=== PATIENT | male | born 1935 | race Caucasian/White ===

== ENCOUNTER 2019-01-13 08:04 | Day surgery (SDC) | payer MEDICARE, OTHER ==
[~2019-01-13] VITALS: Ht 175.3 cm; Wt 69.0 kg
[~2019-01-13 08:04] MED LIST: CLOP75TA35 PO; FURO40TA4 PO; LEVO50TA PO; PRAV40TA3 PO; SPIR50TA5 PO
[2019-01-13 08:15] VITALS: BP 129/70
[2019-01-13] MEDS ORDERED: FISH12002 PO (08:27)
[2019-01-13] MEDS ORDERED: MULT-955 PO (08:27)
[2019-01-13] MEDS ORDERED: CHOL400T14 PO (08:27)
[2019-01-13] MEDS ORDERED: SAW450CA7 PO (08:27)
[2019-01-13] MEDS ORDERED: APIX5TAB3 PO (08:35)
[2019-01-13 09:10] VITALS: BP 129/70
[2019-01-13 09:12] VITALS: BP 127/68
== END 2019-01-13 09:20 | disposition home or self-care (01) ==
LOC: SSTAY O 08:04
PROVIDERS: ATTEND Radiology Diagnostic Radiology
DX: J90 Pleural effusion, not elsewhere classified (principal); Z53.8 Procedure and treatment not carried out for other reasons; Z85.72 Personal history of non-Hodgkin lymphomas
CPT/HCPCS: 76604